=== PATIENT | male | born 1935 | race Caucasian/White ===

== ENCOUNTER → 2018-05-08 | Outpatient (CLI) | payer MEDICARE ==
[~2018-05-08] MED LIST: AMIO200; AMIO200 PO; ASPI81CH PO; ASPI81EC PO; CHOL10002 PO; DILT120 PO; LEVSOD25; LEVSOD75 PO; LISI20 PO; MAGOXI400 PO; METO25ER PO; METO50; METO50ER PO; MULVITA PO; PANT20; PANT20 PO; Prednisone20 MG PO; RANI150; SIMV20 PO; SIMV40; SIMV5 PO; SPIR25 PO; WARF5 PO; WARF7.5
== END | disposition home or self-care (01) ==
LOC: LAB SHORT 16:00 → LAB EV 16:00
DX: M79.675 Pain in left toe(s) (principal)
CPT/HCPCS: 87102; 87106

== ENCOUNTER 2018-06-05 16:18 | Inpatient (IN) | payer MEDICARE ==
[~2018-06-05] VITALS: Ht 177.8 cm; Wt 91.3 kg
[~2018-06-05 16:18] MED LIST changes: -ATOR40TA PO; -Augmentin 875-1 EACH PO; -ENTRESTO 49 MG1 EACH PO; -ENTRESTO 97 MG1 EACH PO; -EPLE25 PO; -FURO20 PO; -Mucinex600 MG PO; -TERB250 PO; -ZINC30 M1 PO
[2018-06-05] MEDS ORDERED: ATOR40TA PO (17:12)
[2018-06-05] MEDS ORDERED: ZINC30 M1 PO (17:14)
[2018-06-05] MEDS ORDERED: ENTRESTO 49 MG1 EACH PO (17:15)
[2018-06-05] MEDS ORDERED: FURO20 PO (17:16)
[2018-06-05] MEDS ORDERED: EPLE25 PO (17:18)
--- NOTE | 2018-06-05 17:27 | NUR ---
ADMIT NOTE- PT ARRIVED ON MEDICAL FLOOR A DIRECT ADMIT FROM JOHN TO DR HUMPHREYS. HOME MED REC COMPLETED THEN DR HUMPHREYS CALLED AND NOTIFIED OF PT ARRIVAL. PT INITIAL VITALS HAD A VEW SCORE OF 5 D/T HIGH TEMP AND HIGH HR. DR HUMPHREYS COMING TO SEE THE PT NOW.
[2018-06-05] MEDS ORDERED: TERB250 PO (17:32)
[2018-06-05] MEDS ORDERED: ENTRESTO 97 MG1 EACH PO (17:32)
[2018-06-06 05:23] LABS: BASOPHILS ABSOLUTE AUTO 0.04 K/mm3 (0.00-0.23); BASOPHILS PERCENT AUTO 0 % (0-2); EOSINOPHILS ABSOLUTE AUTO 0.02 K/mm3 (0.00-0.68); EOSINOPHILS PERCENT AUTO 0 % (0-6); Hematocrit 38.6 % (37.0-53.0); Hemoglobin 12.3 g/dL (13.5-17.5); IMMATURE GRAN ABSOLUTE AUTO 0.14 K/mm3 (0.00-0.10); IMMATURE GRAN PERCENT AUTO 1 % (0-1); LYMPHOCYTES PERCENT AUTO 10 % (21-46); MONOCYTES ABSOLUTE AUTO 1.13 K/mm3 (0.16-1.47); MONOCYTES PERCENT AUTO 6 % (4-13); Mean Corpuscular HGB 30.1 pg (26.0-34.0); Mean Corpuscular HGB Conc 31.9 g/dL (31.5-36.5); Mean Corpuscular Volume 94 fL (80-100); Mean Platelet Volume 11.8 fL (9.1-12.4); NEUTROPHILS ABSOLUTE AUTO 15.59 K/mm3 (1.96-9.15); NEUTROPHILS PERCENT AUTO 83 % (41-73); Platelet Count 177 K/mm3 (150-400); RDW Coefficient Variation 13.2 % (11.7-14.2); RDW Standard Deviation 45.5 fL (35.1-46.3); Red Blood Cell Count 4.09 M/mm3 (4.30-5.90); White Blood Cell Count 18.82 K/mm3 (4.00-11.30)
--- NOTE | 2018-06-06 05:46 | NUR ---
*SHIFT SUMMARY* PT IS ALERT AND ORIENTED. PT HAS A BAD COUGH AND IS PRODUCING A MODERATE AMOUND OF SPUTUM, SAMPLE WAS SENT TO LAB. IT APPEARS TO BE BLOODY. PATIENT DENIES PAIN. SLEPT WELL THROUGHOUT THE NIGHT. VITAL SIGNS HAD A VEW SCORE 3. HEART RATE IS ELEVATED WITH COUGHING. BLOOD PRESSURE IS A LITTLE LOW. CHARGE AWARE. PATIENT IS NOT SYMPTOMATIC. NO NEW CHANGES.
[2018-06-06 05:48] LABS: Alanine Aminotransfer (ALT/SGP 13 U/L (12-78); Alk Phos 73 U/L (50-136); Anion Gap 6 mmol/L (6-16); Aspartate Aminotrans (AST/SGOT 8 U/L (12-37); Bilirubin, Total 2.5 mg/dL (0.1-1.0); Blood Urea Nitrogen 24 mg/dL (8-24); Bun/Creatinine Ratio 24.8 (12.0-20.0); CO2, Blood 27 mmol/L (21-32); Calcium, Blood 8.3 mg/dL (8.5-10.1); Chloride, Blood 108 mmol/L (98-108); Creatinine, Blood 0.97 mg/dL (0.60-1.20); Globulin, Blood 3.1 g/dL (2.2-4.0); Glomerular Filtration Rate >60 (60-); Glucose, Blood 108 mg/dL (70-99); Potassium, Blood 3.9 mmol/L (3.5-5.5); Sodium, Blood 141 mmol/L (136-145); Total Protein, Blood 6.1 g/dL (6.4-8.2)
--- NOTE | 2018-06-06 15:57 | NUR ---
SHIFT SUMMARY NO ACUTE CHANGES. PATIENT INDEPENDENT IN ROOM. DENIES PAIN, NAUSEA, AND SHORTNESS OF BREATH. VISITED WITH FAMILY AND WALKED IN HALLWAY TODAY. REPORTS HE IS FEELING BETTER. POSSIBLE DISCHARGE TOMORROW. CALL LIGHT IN REACH, WILL CONTINUE TO MONITOR.
--- NOTE | 2018-06-06 16:10 | NUR ---
Leon is well known to me from the community. He is not particularly yazdanism, but enjoys conversation and encouragement. His a few years ago. He has been traveling the world since her passing and has many very close friends. He would like his friends to be his MPOA and tells me he has an Advanced Directive. I advised he ask friends to provide Gina a copy for our records. Leon's son a little over a year ago, and he is still grieving this loss. I provided gentle bereavement estate planning counselor to good effect. Leon admits he is "a little" concernd about his recent swallow problems. Clearly, he would benefit from more education regarding how to prevent aspiration. I will remain available.
--- NOTE | 2018-06-07 03:10 | NUR ---
pt using oxygen 1 l nc to keep sats greater than 90%. He is able to ambulate without oxygen in hallway. cough loose continues. has Pacemaker AICD. continues on IV antibiotics flagyl and rocephin. Hoping to DC home soon.
[2018-06-07 05:25] LABS: BASOPHILS ABSOLUTE AUTO 0.03 K/mm3 (0.00-0.23); BASOPHILS PERCENT AUTO 0 % (0-2); EOSINOPHILS ABSOLUTE AUTO 0.16 K/mm3 (0.00-0.68); EOSINOPHILS PERCENT AUTO 2 % (0-6); Hematocrit 40.1 % (37.0-53.0); Hemoglobin 12.7 g/dL (13.5-17.5); IMMATURE GRAN ABSOLUTE AUTO 0.06 K/mm3 (0.00-0.10); IMMATURE GRAN PERCENT AUTO 1 % (0-1); LYMPHOCYTES ABSOLUTE AUTO 1.88 K/mm3 (0.84-5.20); LYMPHOCYTES PERCENT AUTO 18 % (21-46); MONOCYTES ABSOLUTE AUTO 0.88 K/mm3 (0.16-1.47); MONOCYTES PERCENT AUTO 9 % (4-13); Mean Corpuscular HGB Conc 31.7 g/dL (31.5-36.5); Mean Corpuscular Volume 95 fL (80-100); Mean Platelet Volume 11.5 fL (9.1-12.4); NEUTROPHILS ABSOLUTE AUTO 7.37 K/mm3 (1.96-9.15); NEUTROPHILS PERCENT AUTO 71 % (41-73); Platelet Count 160 K/mm3 (150-400); RDW Coefficient Variation 13.6 % (11.7-14.2); RDW Standard Deviation 46.9 fL (35.1-46.3); Red Blood Cell Count 4.23 M/mm3 (4.30-5.90); White Blood Cell Count 10.38 K/mm3 (4.00-11.30)
[2018-06-07 05:48] LABS: Alanine Aminotransfer (ALT/SGP 15 U/L (12-78); Albumin/Globulin Ratio 0.9 (0.8-1.8); Alk Phos 73 U/L (50-136); Anion Gap 5 mmol/L (6-16); Aspartate Aminotrans (AST/SGOT 10 U/L (12-37); Bilirubin, Total 1.5 mg/dL (0.1-1.0); Blood Urea Nitrogen 22 mg/dL (8-24); Bun/Creatinine Ratio 23.9 (12.0-20.0); CO2, Blood 27 mmol/L (21-32); Calcium, Blood 8.6 mg/dL (8.5-10.1); Chloride, Blood 109 mmol/L (98-108); Creatinine, Blood 0.92 mg/dL (0.60-1.20); Globulin, Blood 3.5 g/dL (2.2-4.0); Glomerular Filtration Rate >60 (60-); Glucose, Blood 86 mg/dL (70-99); Potassium, Blood 3.9 mmol/L (3.5-5.5); Sodium, Blood 141 mmol/L (136-145); Total Protein, Blood 6.5 g/dL (6.4-8.2)
--- NOTE | 2018-06-07 18:19 | NUR ---
SHIFT SUMMARY NO ACUTE CHANGES. PATIENT DENIES PAIN, NAUSEA, AND SHORTNESS OF BREATH. HOME 02 EVAL COMPLETED, PATIENT DOES NOT NEED SUPPLEMENTAL OXYGEN. IRVIN HAD BARIUM SWALLOW STUDY TODAY. LIKELY DISCHARGE TOMORROW. CALL LIGHT IN REACH, WILL CONTINUE TO MONITOR.
--- NOTE | 2018-06-08 06:38 | NUR ---
SHIFT SUMMARY NO ACUTE CHANGES TO PRESENT THIS SHIFT. PT WAS AWAKE AND ALERT DURING SHIFT REPORT. PLEASANT AND CO-OP WITH CARE. PT HOPING TO GO HOME TODAY, DEPENDING ON RADIOLOGY RESULTS. PT WITH SPUTUM CUP AT BS THRU OUT THE SHIFT; 25cc OUT. PT HAD REPORTED IT NORMAL; UNCLEAR IF FROM THROAT IRRITATION OR OTHER SOURCE. PT IS INDEPENDANT IN AND TO [place]. NO C/O. CALL LT IN REACH.
[2018-06-08 07:11] LABS: HBSAG SCREEN Negative (Negative); HEP B CORE AB, TOT Positive (Negative); HEP C VIRUS AB <0.1 (0.0-0.9)
[2018-06-08] MEDS ORDERED: Mucinex600 MG PO (11:52)
[2018-06-08] MEDS ORDERED: Augmentin 875-1 EACH PO (11:53)
--- NOTE | 2018-06-08 13:30 | NUR ---
DISCHARGE DISCHARGE MEDICATIONS AND INSTRUCTIONS EXPLAINED TO PATIENT. HE STATED UNDERSTANDING. IV REMOVED WITHOUT DIFFICULTY. BELONGINGS WITH PATIENT. PATIENT TRANSFERED TO PRIVATE VEHICLE VIA WHEELCHAIR.
== END 2018-06-08 12:23 | disposition home or self-care (01) | DRG 177 ==
LOC: MEDS 16:18
PROVIDERS: ADMIT Family Medicine
DX: J69.0 Pneumonitis due to inhalation of food and vomit (principal); J96.01 Acute respiratory failure with hypoxia; J98.11 Atelectasis; J84.10 Pulmonary fibrosis, unspecified; I25.5 Ischemic cardiomyopathy; R13.10 Dysphagia, unspecified; Z95.0 Presence of cardiac pacemaker; I25.2 Old myocardial infarction; K22.70 Barrett's esophagus without dysplasia; Z95.1 Presence of aortocoronary bypass graft; I48.91 Unspecified atrial fibrillation; K21.0 Gastro-esophageal reflux disease with esophagitis; Z87.891 Personal history of nicotine dependence
CPT/HCPCS: 36415; 71046; 74220; 80053; 85025; 86317; 86704; 86708; 86803; 87070; 87205; 87340; 94640; 94760; 94761; J0295; J0696; J1650; J7050

== ENCOUNTER → 2018-06-05 | Outpatient (CLI) | payer MEDICARE ==
[~2018-06-05] MED LIST changes: +ATOR40TA PO; +Augmentin 875-1 EACH PO; -CHOL10002 PO; +ENTRESTO 49 MG1 EACH PO; +ENTRESTO 97 MG1 EACH PO; +EPLE25 PO; +FURO20 PO; +Mucinex600 MG PO; +TERB250 PO; +VITAMIN D3400 UNIT PO; +ZINC30 M1 PO
[2018-06-05 16:14] LABS: BASOPHILS ABSOLUTE AUTO 0.03 K/mm3 (0.00-0.23); BASOPHILS PERCENT AUTO 0 % (0-2); EOSINOPHILS ABSOLUTE AUTO 0.05 K/mm3 (0.00-0.68); EOSINOPHILS PERCENT AUTO 0 % (0-6); Hematocrit 45.9 % (37.0-53.0); IMMATURE GRAN ABSOLUTE AUTO 0.05 K/mm3 (0.00-0.10); IMMATURE GRAN PERCENT AUTO 0 % (0-1); LYMPHOCYTES ABSOLUTE AUTO 1.22 K/mm3 (0.84-5.20); LYMPHOCYTES PERCENT AUTO 10 % (21-46); MONOCYTES ABSOLUTE AUTO 0.61 K/mm3 (0.16-1.47); MONOCYTES PERCENT AUTO 5 % (4-13); Mean Corpuscular HGB 30.7 pg (26.0-34.0); Mean Corpuscular HGB Conc 32.7 g/dL (31.5-36.5); Mean Corpuscular Volume 94 fL (80-100); Mean Platelet Volume 11.6 fL (9.1-12.4); NEUTROPHILS ABSOLUTE AUTO 10.39 K/mm3 (1.96-9.15); NEUTROPHILS PERCENT AUTO 84 % (41-73); Platelet Count 201 K/mm3 (150-400); RDW Coefficient Variation 13.2 % (11.7-14.2); RDW Standard Deviation 45.1 fL (35.1-46.3); Red Blood Cell Count 4.89 M/mm3 (4.30-5.90); White Blood Cell Count 12.35 K/mm3 (4.00-11.30)
[2018-06-05 16:29] LABS: Alanine Aminotransfer (ALT/SGP 23 U/L (12-78); Alk Phos 113 U/L (40-126); Anion Gap 8 mmol/L (6-16); Aspartate Aminotrans (AST/SGOT 22 U/L (12-37); Bilirubin, Total 1.4 mg/dL (0.1-1.0); Blood Urea Nitrogen 25 mg/dL (8-24); Bun/Creatinine Ratio 25.5 (12.0-20.0); CO2, Blood 25 mmol/L (21-32); Calcium, Blood 8.8 mg/dL (8.5-10.1); Chloride, Blood 104 mmol/L (98-108); Creatinine, Blood 0.98 mg/dL (0.60-1.20); Globulin, Blood 3.9 g/dL (2.2-4.0); Glomerular Filtration Rate >60 (60-); Glucose, Blood 104 mg/dL (70-99); Sodium, Blood 137 mmol/L (136-145); Total Protein, Blood 7.9 g/dL (6.4-8.2); Troponin I <0.017 ng/mL (0.000-0.040)
== END | disposition home or self-care (01) ==
LOC: LAB EV 16:10 → LAB SHORT 16:10
PROVIDERS: Emergency Medicine
DX: R09.02 Hypoxemia (principal)
CPT/HCPCS: 80053; 84484; 85025

== ENCOUNTER → 2019-07-03 | Outpatient (CLI) | payer MEDICARE ==
[~2019-07-03] MED LIST changes: +ATOR40TA PO; +Augmentin 875-1 EACH PO; +ENTRESTO 49 MG1 EACH PO; +ENTRESTO 97 MG1 EACH PO; +EPLE25 PO; +FURO20 PO; +Mucinex600 MG PO; +TERB250 PO; +ZINC30 M1 PO
[2019-07-03 14:47] LABS: BASOPHILS ABSOLUTE AUTO 0.06 K/mm3 (0.00-0.23); BASOPHILS PERCENT AUTO 1 % (0-2); EOSINOPHILS ABSOLUTE AUTO 0.22 K/mm3 (0.00-0.68); EOSINOPHILS PERCENT AUTO 2 % (0-6); Hematocrit 40.6 % (37.0-53.0); Hemoglobin 13.2 g/dL (13.5-17.5); IMMATURE GRAN ABSOLUTE AUTO 0.03 K/mm3 (0.00-0.10); IMMATURE GRAN PERCENT AUTO 0 % (0-1); LYMPHOCYTES ABSOLUTE AUTO 2.61 K/mm3 (0.84-5.20); LYMPHOCYTES PERCENT AUTO 29 % (21-46); MONOCYTES ABSOLUTE AUTO 0.89 K/mm3 (0.16-1.47); MONOCYTES PERCENT AUTO 10 % (4-13); Mean Corpuscular HGB 30.6 pg (26.0-34.0); Mean Corpuscular HGB Conc 32.5 g/dL (31.5-36.5); Mean Corpuscular Volume 94 fL (80-100); Mean Platelet Volume 11.4 fL (9.1-12.4); NEUTROPHILS ABSOLUTE AUTO 5.19 K/mm3 (1.96-9.15); NEUTROPHILS PERCENT AUTO 58 % (41-73); Platelet Count 234 K/mm3 (150-400); RDW Coefficient Variation 13.2 % (11.7-14.2); RDW Standard Deviation 45.1 fL (35.1-46.3); Red Blood Cell Count 4.32 M/mm3 (4.30-5.90)
[2019-07-03 15:00] LABS: Alanine Aminotransfer (ALT/SGP 22 U/L (12-78); Albumin, Blood 4.1 g/dL (3.4-5.0); Albumin/Globulin Ratio 1.1 (0.8-1.8); Alk Phos 117 U/L (40-126); Anion Gap 8 mmol/L (6-16); Aspartate Aminotrans (AST/SGOT 14 U/L (12-37); Bilirubin, Total 0.7 mg/dL (0.1-1.0); Blood Urea Nitrogen 30 mg/dL (8-24); Bun/Creatinine Ratio 22.7 (12.0-20.0); CO2, Blood 27 mmol/L (21-32); Calcium, Blood 8.9 mg/dL (8.5-10.1); Chloride, Blood 108 mmol/L (98-108); Creatinine, Blood 1.32 mg/dL (0.60-1.20); Globulin, Blood 3.7 g/dL (2.2-4.0); Glomerular Filtration Rate 52 (60-); Glucose, Blood 91 mg/dL (70-99); Potassium, Blood 4.9 mmol/L (3.5-5.5); Sodium, Blood 143 mmol/L (136-145); Total Protein, Blood 7.8 g/dL (6.4-8.2)
[2019-07-03 15:01] LABS: Troponin I <0.017 ng/mL (0.000-0.040)
== END | disposition home or self-care (01) ==
LOC: LAB SHORT 14:42 → LAB EV 14:42
PROVIDERS: Physician Assistant
DX: I95.9 Hypotension, unspecified (principal); R53.83 Other fatigue
CPT/HCPCS: 80053; 84484; 85025

== ENCOUNTER 2019-12-28 17:09 | Inpatient (IN) | payer OTHER, MEDICARE ==
[~2019-12-28] VITALS: Ht 177.8 cm; Wt 89.7 kg
[~2019-12-28 17:09] MED LIST changes: -ASPI81CH PO; -ATOR40TA PO; -ENTRESTO 97 MG1 EACH PO; -EPLE25 PO; -LEVSOD75 PO; -MAGOXI400 PO; -METO50ER PO; -VITAMIN D3400 UNIT PO
[2019-12-28 17:46] LABS: BASOPHILS ABSOLUTE AUTO 0.06 K/mm3 (0.00-0.23); BASOPHILS PERCENT AUTO 0 % (0-2); EOSINOPHILS PERCENT AUTO 1 % (0-6); Hematocrit 43.8 % (37.0-53.0); Hemoglobin 13.5 g/dL (13.5-17.5); IMMATURE GRAN ABSOLUTE AUTO 0.05 K/mm3 (0.00-0.10); IMMATURE GRAN PERCENT AUTO 0 % (0-1); LYMPHOCYTES ABSOLUTE AUTO 2.01 K/mm3 (0.84-5.20); LYMPHOCYTES PERCENT AUTO 12 % (21-46); MONOCYTES ABSOLUTE AUTO 1.04 K/mm3 (0.16-1.47); MONOCYTES PERCENT AUTO 6 % (4-13); Mean Corpuscular HGB 29.1 pg (26.0-34.0); Mean Corpuscular HGB Conc 30.8 g/dL (31.5-36.5); Mean Corpuscular Volume 94 fL (80-100); Mean Platelet Volume 11.1 fL (9.1-12.4); NEUTROPHILS ABSOLUTE AUTO 13.07 K/mm3 (1.96-9.15); NEUTROPHILS PERCENT AUTO 80 % (41-73); Platelet Count 230 K/mm3 (150-400); RDW Coefficient Variation 12.9 % (11.7-14.2); RDW Standard Deviation 44.5 fL (35.1-46.3); Red Blood Cell Count 4.64 M/mm3 (4.30-5.90); White Blood Cell Count 16.33 K/mm3 (4.00-11.30)
[2019-12-28 18:11] LABS: Alanine Aminotransfer (ALT/SGP 20 U/L (12-78); Albumin, Blood 3.9 g/dL (3.4-5.0); Alk Phos 100 U/L (50-136); Anion Gap 8 mmol/L (6-16); Aspartate Aminotrans (AST/SGOT 33 U/L (12-37); Bilirubin, Total 1.2 mg/dL (0.1-1.0); Blood Urea Nitrogen 26 mg/dL (8-24); Bun/Creatinine Ratio 28.2 (12.0-20.0); CO2, Blood 25 mmol/L (21-32); Calcium, Blood 9.3 mg/dL (8.5-10.1); Chloride, Blood 109 mmol/L (98-108); Creatinine, Blood 0.92 mg/dL (0.60-1.20); Glomerular Filtration Rate >60 (60-); Glucose, Blood 116 mg/dL (70-99); Potassium, Blood 4.6 mmol/L (3.5-5.5); Sodium, Blood 142 mmol/L (136-145); Total Protein, Blood 7.9 g/dL (6.4-8.2)
[2019-12-28 18:17] LABS: Magnesium, Blood 1.8 mg/dL (1.6-2.4); Troponin I <0.015 ng/mL (0.000-0.040)
[2019-12-28 20:03] LABS: Influenza A, PCR Negative (NEGATIVE); Influenza B, PCR Negative (NEGATIVE); Resp Syncytial Virus, PCR Negative (NEGATIVE); SARS-Cov-2 (COVID-19) PCR, MMC Negative (NEGATIVE)
[2019-12-28] MEDS ORDERED: LEVSOD75 PO (20:23)
[2019-12-28] MEDS ORDERED: Aspir 8181 MG PO (20:56)
[2019-12-28] MEDS ORDERED: TOPROL XL200 MG PO (20:56)
[2019-12-28] MEDS ORDERED: ATOR40TA PO (20:57)
[2019-12-28] MEDS ORDERED: MAGOXI400 PO (20:57)
[2019-12-28] MEDS ORDERED: VITAMIN D3400 UNIT PO (20:57)
[2019-12-28] MEDS ORDERED: ENTRESTO 97 MG1 EACH PO (20:58)
[2019-12-28] MEDS ORDERED: EPLE25 PO (20:58)
[2019-12-28] MEDS ORDERED: ELIQUIS5 MG PO (20:59)
[2019-12-28] MEDS ORDERED: ZINC PO (21:02)
[2019-12-29 06:06] LABS: BASOPHILS ABSOLUTE AUTO 0.06 K/mm3 (0.00-0.23); BASOPHILS PERCENT AUTO 0 % (0-2); EOSINOPHILS ABSOLUTE AUTO 0.07 K/mm3 (0.00-0.68); EOSINOPHILS PERCENT AUTO 0 % (0-6); Hematocrit 37.6 % (37.0-53.0); Hemoglobin 11.9 g/dL (13.5-17.5); IMMATURE GRAN ABSOLUTE AUTO 0.12 K/mm3 (0.00-0.10); IMMATURE GRAN PERCENT AUTO 1 % (0-1); LYMPHOCYTES ABSOLUTE AUTO 2.48 K/mm3 (0.84-5.20); LYMPHOCYTES PERCENT AUTO 11 % (21-46); MONOCYTES PERCENT AUTO 7 % (4-13); Mean Corpuscular HGB 29.6 pg (26.0-34.0); Mean Corpuscular HGB Conc 31.6 g/dL (31.5-36.5); Mean Corpuscular Volume 94 fL (80-100); Mean Platelet Volume 11.8 fL (9.1-12.4); NEUTROPHILS ABSOLUTE AUTO 17.67 K/mm3 (1.96-9.15); NEUTROPHILS PERCENT AUTO 80 % (41-73); Platelet Count 217 K/mm3 (150-400); RDW Coefficient Variation 13.2 % (11.7-14.2); RDW Standard Deviation 45.3 fL (35.1-46.3); Red Blood Cell Count 4.02 M/mm3 (4.30-5.90)
[2019-12-29 06:36] LABS: Bun/Creatinine Ratio 24.8 (12.0-20.0); Calcium, Blood 8.9 mg/dL (8.5-10.1); Creatinine, Blood 1.25 mg/dL (0.60-1.20); Potassium, Blood 4.2 mmol/L (3.5-5.5)
--- NOTE | 2019-12-29 13:45 | NUR ---
PT BP HAS BEEN LOW THIS SHIFT, NOTIFIED DR. CANALES.
--- NOTE | 2019-12-29 18:01 | NUR ---
PT IS A/O, PLESANT AND COOPERATIVE. HE WAS EVALUATED BY ST THIS AFTERNOON AND WAS PLACED ON A SOFT DIET. HE IS EATING AND DRINKING WELL. HIS BP HAS BEEN LOW THIS SHIFT. SPOKE WITH PROVIDER ABOUT THIS, HE DISCUSSED HOLDING BP MEDICATIONS WITH THE PT. PT WAS TITRATED OFF OXYGEN THIS SHIFT AND HAS BEEN MAINTAINING O2 SATS AROUND 94, DISCUSSED WITH RT.
--- NOTE | 2019-12-29 19:46 | NUR ---
12/27 [facility] SHIFT SUMMARY PT WAS A NEW ADMIT DURING THE NIGHT, ADMITTED FOR ASPIRATION PNA AFTER ASPIRATING ON MILK AT HOME. HE IS A&O X 4, SBA TO THE BATHROOM. PT IS ON 3L OF O2 VIA NC, SATTING > 92%. PT DOES HAVE A WET-SOUNDING PRODUCTIVE COUGH. RECEIVING LR @ 100 ML/HR. PT HAS BEEN NPO SINCE ADMIT IN WAIT FOR AN ST EVAL. NO C/O PAIN, NAUSEA OR SOB. BP THIS AM WAS LOW AT 87/41, THOUGH PT REPORTED "IT IS ALWAYS THAT LOW". ALL OTHER VITALS STABLE. NO OTHER ACUTE CHANGES IN PT CONDITION NOTED DURING THE NIGHT. REPORT GIVEN TO ONCOMING RN.
[2019-12-30 04:47] LABS: BASOPHILS ABSOLUTE AUTO 0.05 K/mm3 (0.00-0.23); BASOPHILS PERCENT AUTO 1 % (0-2); EOSINOPHILS ABSOLUTE AUTO 0.27 K/mm3 (0.00-0.68); EOSINOPHILS PERCENT AUTO 3 % (0-6); Hematocrit 31.9 % (37.0-53.0); Hemoglobin 10.1 g/dL (13.5-17.5); IMMATURE GRAN ABSOLUTE AUTO 0.04 K/mm3 (0.00-0.10); IMMATURE GRAN PERCENT AUTO 0 % (0-1); LYMPHOCYTES ABSOLUTE AUTO 2.51 K/mm3 (0.84-5.20); LYMPHOCYTES PERCENT AUTO 28 % (21-46); MONOCYTES ABSOLUTE AUTO 0.92 K/mm3 (0.16-1.47); MONOCYTES PERCENT AUTO 10 % (4-13); Mean Corpuscular HGB 29.9 pg (26.0-34.0); Mean Corpuscular HGB Conc 31.7 g/dL (31.5-36.5); Mean Corpuscular Volume 94 fL (80-100); Mean Platelet Volume 11.7 fL (9.1-12.4); NEUTROPHILS ABSOLUTE AUTO 5.31 K/mm3 (1.96-9.15); NEUTROPHILS PERCENT AUTO 58 % (41-73); Platelet Count 151 K/mm3 (150-400); RDW Coefficient Variation 13.3 % (11.7-14.2); RDW Standard Deviation 45.5 fL (35.1-46.3); Red Blood Cell Count 3.38 M/mm3 (4.30-5.90)
[2019-12-30 05:11] LABS: Anion Gap 4 mmol/L (6-16); Blood Urea Nitrogen 35 mg/dL (8-24); Bun/Creatinine Ratio 31.2 (12.0-20.0); CO2, Blood 28 mmol/L (21-32); Calcium, Blood 8.2 mg/dL (8.5-10.1); Chloride, Blood 113 mmol/L (98-108); Creatinine, Blood 1.12 mg/dL (0.60-1.20); Glomerular Filtration Rate >60 (60-); Glucose, Blood 100 mg/dL (70-99); Potassium, Blood 3.6 mmol/L (3.5-5.5); Sodium, Blood 145 mmol/L (136-145)
--- NOTE | 2019-12-30 06:07 | NUR ---
SHIFT SUMMARY PT IS AN 84 Y/O MALE, ADMITTED FOR ASPIRATION PNA. HE IS A&O X 3, SBA TO THE BATHROOM. PT STATED THAT HE FEELS "MUCH BETTER THAN WHEN I CAME IN", WITH LESS COUGHING. LUNGS ARE CLEARER COMPARED TO PREVIOUS DEPARTMENT OF MATHEMATICS CHAIR. NO C/0 PAIN, NAUSEA OR SOB. AM BP WAS LOW AT 88/44, OTHERWISE VITAL SIGNS STABLE. NO ACUTE CHANGES IN PT CONDITION NOTED. WILL CONTINUE TO MONITOR AND TREAT PER EMAR UNTIL HAND OFF TO DAY SHIFT RN.
--- NOTE | 2019-12-30 14:53 | NUR ---
VERIFIED WITH DR CANALES PT TO CONTINUE HOME ENTRESTO UPON DISCHARGE AND FOLLOW UP WITH MANAGER MARKET.
--- NOTE | 2019-12-30 15:48 | NUR ---
DISCHARGE PT STATE FEELING IMPROVED THIS AM, NO SWALLOWING ISSUES, NO SOB, HOPEFUL TO GO HOME. STATE SPEECH THERAPIST WAS IN TO REVIEW SWALLOW TECHNIQUES, STATE "READ ME THE RIOT ACT" FOR NOT FOLLOWING GUIDELINES. HIS LUNGS THIS AM SOUND CLEAR. DR CANALES IN TO ASSESS, STATE PT MAY GO HOME TODAY, PLACE ORDERS FOR D/C THIS AFTERNOON. NO NEW MEDS. D/C INSTRUCT REVIEWED w PT. IV D/C INTACT. HE DECLINE SHOWER. DRESS/GATHER BELONGINGS. W/C [facility]OS[facility] PROVIDED. HE IS PLEASANT/APPRECIATIVE, STATES SATISFACTION.
== END 2019-12-30 15:11 | disposition home or self-care (01) | DRG 177 ==
LOC: ER 17:09 → MEDS 17:19
PROVIDERS: Emergency Medicine; Internal Medicine; Physician Assistant; ADMIT Family Medicine
DX: J69.0 Pneumonitis due to inhalation of food and vomit (principal); J96.01 Acute respiratory failure with hypoxia; I50.22 Chronic systolic (congestive) heart failure; N17.9 Acute kidney failure, unspecified; Z95.1 Presence of aortocoronary bypass graft; I25.2 Old myocardial infarction; Z95.810 Presence of automatic (implantable) cardiac defibrillator; K21.9 Gastro-esophageal reflux disease without esophagitis; I48.91 Unspecified atrial fibrillation; D64.9 Anemia, unspecified; I25.10 Atherosclerotic heart disease of native coronary artery without angina pectoris; I25.5 Ischemic cardiomyopathy; Z87.891 Personal history of nicotine dependence; E03.9 Hypothyroidism, unspecified; Z20.828 Contact with and (suspected) exposure to other viral communicable diseases; J44.9 Chronic obstructive pulmonary disease, unspecified; J84.10 Pulmonary fibrosis, unspecified
CPT/HCPCS: 0241U; 36415; 71045; 71046; 80048; 80053; 83605; 83735; 83880; 84145; 84484; 85025; 87040; 92610; 93005; 93010; 96374; 99285-25; A9270-GY; J0295; J1200; J7120

== ENCOUNTER → 2021-09-03 | Outpatient (CLI) | payer MEDICARE ==
[~2021-09-03] MED LIST changes: +ATOR40TA PO; +Aspir 8181 MG PO; +ELIQUIS5 MG PO; +ENTRESTO 97 MG1 EACH PO; +EPLE25 PO; +LEVSOD75 PO; +MAGOXI400 PO; +TOPROL XL200 MG PO; +VITAMIN D3400 UNIT PO; +ZINC PO
[2021-09-03 12:06] LABS: BASOPHILS ABSOLUTE AUTO 0.05 K/mm3 (0.00-0.23); BASOPHILS PERCENT AUTO 1 % (0-2); EOSINOPHILS ABSOLUTE AUTO 0.21 K/mm3 (0.00-0.68); EOSINOPHILS PERCENT AUTO 3 % (0-6); Hematocrit 42.2 % (37.0-53.0); Hemoglobin 13.5 g/dL (13.5-17.5); IMMATURE GRAN ABSOLUTE AUTO 0.02 K/mm3 (0.00-0.10); IMMATURE GRAN PERCENT AUTO 0 % (0-1); LYMPHOCYTES ABSOLUTE AUTO 2.14 K/mm3 (0.84-5.20); LYMPHOCYTES PERCENT AUTO 26 % (21-46); MONOCYTES ABSOLUTE AUTO 0.82 K/mm3 (0.16-1.47); MONOCYTES PERCENT AUTO 10 % (4-13); Mean Corpuscular HGB 29.4 pg (26.0-34.0); Mean Corpuscular Volume 92 fL (80-100); Mean Platelet Volume 10.9 fL (9.1-12.4); NEUTROPHILS ABSOLUTE AUTO 4.92 K/mm3 (1.96-9.15); NEUTROPHILS PERCENT AUTO 60 % (41-73); Platelet Count 262 K/mm3 (150-400); RDW Coefficient Variation 14.4 % (11.7-14.2); RDW Standard Deviation 47.8 fL (35.1-46.3); Red Blood Cell Count 4.59 M/mm3 (4.30-5.90); White Blood Cell Count 8.16 K/mm3 (4.00-11.30)
[2021-09-03 12:26] LABS: Albumin, Blood 3.8 g/dL (3.4-5.0); Albumin/Globulin Ratio 1.1 (0.8-1.8); Bilirubin, Total 1.1 mg/dL (0.1-1.0); Bun/Creatinine Ratio 19.2 (12.0-20.0); Calcium, Blood 8.7 mg/dL (8.5-10.1); Creatinine, Blood 1.25 mg/dL (0.60-1.20); Globulin, Blood 3.6 g/dL (2.2-4.0); Potassium, Blood 4.7 mmol/L (3.5-5.5); Thyroid Stimulating Hormone 1.641 uIU/mL (0.360-4.800); Total Protein, Blood 7.4 g/dL (6.4-8.2)
== END | disposition home or self-care (01) ==
LOC: LAB SHORT 11:58 → LAB 11:58
PROVIDERS: Chiropractor
DX: R53.83 Other fatigue (principal); R00.2 Palpitations
CPT/HCPCS: 80053; 84443; 84484; 85025

== ENCOUNTER 2021-10-06 01:43 | Day surgery (SDC) | payer MEDICARE | END 2021-10-06 23:59 | disposition home or self-care (01) | LOC: WOUND 01:43 | DX: S61.411D Laceration without foreign body of right hand, subsequent encounter (principal); S51.811D Laceration without foreign body of right forearm, subsequent encounter; X58.XXXD Exposure to other specified factors, subsequent encounter; I50.9 Heart failure, unspecified; Z91.011 Allergy to milk products; Z88.8 Allergy status to other drugs, medicaments and biological substances; Z91.048 Other nonmedicinal substance allergy status; Z79.01 Long term (current) use of anticoagulants | CPT/HCPCS: A9270; G0463 ==

== ENCOUNTER → 2022-06-08 | Outpatient (CLI) | payer MEDICARE ==
[2022-06-09 11:16] LABS: Stool Occult Bld Immuno 1 Negative (NEGATIVE)
== END | disposition home or self-care (01) ==
LOC: LAB SHORT 14:06 → LAB 14:06
PROVIDERS: Internal Medicine
DX: D53.9 Nutritional anemia, unspecified (principal)
CPT/HCPCS: 82274

== ENCOUNTER 2023-03-25 10:52 | Day surgery (SDC) | payer MEDICARE ==
[~2023-03-25] VITALS: Ht 177.8 cm; Wt 89.8 kg
[~2023-03-25 10:52] MED LIST changes: +Atropine Sulfate 0.1 MG/ML 10ML SYR ONE; +Glycopyrrolate 0.2 MG/ML 1MLVIAL ONE; +Lactated Ringer's 1,000 ML IV ONE; +Lidocaine 2% 5 ML SDV ONE; +Lidocaine HCl/Pf 1% 5 ML VIAL ONE; +Methylene Blue 1% 100 MG/10 ML VIAL ONE; +Ondansetron HCl 2 MG / ML 2ML Vial ONE; +ePHEDrine Sulfate 50 MG/ML 1ML Injection ONE; +propofoL 50 ML IV ONE
[2023-03-25] MEDS ORDERED: FURO20 (11:23)
[2023-03-25] MEDS ORDERED: JARDIANCE10 MG (11:25)
[2023-03-25] MEDS ORDERED: OMEP20ER (11:25)
[2023-03-25] MEDS ORDERED: Lactated Ringer's 1,000 ML IV ONE (12:47)
[2023-03-25 13:54] VITALS: BP 110/64
== END 2023-03-25 13:55 | disposition home or self-care (01) ==
LOC: ORSCSDS 10:52
PROVIDERS: Internal Medicine Gastroenterology
PROC: 0DB68ZX Excision of Stomach, Via Natural or Artificial Opening Endoscopic, Diagnostic (ICD-10-PCS; 2023-03-25)
PROC: 0D757ZZ Dilation of Esophagus, Via Natural or Artificial Opening (ICD-10-PCS; principal; 2023-03-25 12:30)
DX: R13.10 Dysphagia, unspecified (principal); R10.13 Epigastric pain; K29.70 Gastritis, unspecified, without bleeding; K22.70 Barrett's esophagus without dysplasia; K22.89 Other specified disease of esophagus; I25.10 Atherosclerotic heart disease of native coronary artery without angina pectoris; K21.9 Gastro-esophageal reflux disease without esophagitis; I48.91 Unspecified atrial fibrillation; Z95.1 Presence of aortocoronary bypass graft; Z79.82 Long term (current) use of aspirin; Z79.01 Long term (current) use of anticoagulants; Z79.899 Other long term (current) drug therapy
CPT/HCPCS: 88305; 88342; J0461; J2001; J2405; J2704; J7120; Q9968

== ENCOUNTER → 2024-04-26 | Outpatient (CLI) | payer MEDICARE ==
[~2024-04-26] MED LIST changes: -Atropine Sulfate 0.1 MG/ML 10ML SYR ONE; +FURO20; -Glycopyrrolate 0.2 MG/ML 1MLVIAL ONE; +JARDIANCE10 MG; -Lactated Ringer's 1,000 ML IV ONE; -Lidocaine 2% 5 ML SDV ONE; -Lidocaine HCl/Pf 1% 5 ML VIAL ONE; -Methylene Blue 1% 100 MG/10 ML VIAL ONE; +OMEP20ER; -Ondansetron HCl 2 MG / ML 2ML Vial ONE; -ePHEDrine Sulfate 50 MG/ML 1ML Injection ONE; -propofoL 50 ML IV ONE
[2024-04-26 14:04] LABS: Source, Urine Clean Catch
[2024-04-26 16:45] LABS: Appearance, Urine Clear (Clear); Bilirubin, Urine Neg (Neg); Blood, Urine Neg (Neg); Color, Urine Yellow (P-Yellow); Glucose Qualitative, Urine 3+ (Neg); Ketones, Urine Neg (Neg); Leukocyte Esterase, Urine Neg (Neg); Nitrite, Urine Neg (Neg); Protein, Urine Neg (Neg); Specific Gravity, Urine 1.015 (1.003-1.022); Urobilinogen, Urine NORM (Normal)
== END ==
LOC: LAB SHORT 14:03 → LAB 14:03
PROVIDERS: Internal Medicine
DX: N18.32 Chronic kidney disease, stage 3b (principal)
CPT/HCPCS: 81003